=== PATIENT | female | born 1975 | race Caucasian/White ===

== ENCOUNTER → 2016-03-20 | Outpatient (CLI) | payer OTHER ==
--- NOTE | 2016-03-20 09:23 | US ---
Pelvic Ultrasound (Transabdominal and Endovaginal) with color flow and spectral Doppler History: Menorrhagia. Possible enlarged uterus.. Findings: The pelvis was first examined through a mildly distended bladder from TRANSABDOMINAL approach. UTERUS: Size: 9.9 x 4.2 x 5.3 cm in longitudinal, AP, and transverse projections. Orientation: Anteverted and slightly retroflexed. Uterine Masses: None seen. Endometrium: Not well delineated. ADNEXA: No adnexal masses. The pelvis was then evaluated from ENDOVAGINAL approach after the bladder was emptied to better evalu ate the uterus and adnexa. UTERUS: Orientation: Anteverted and slightly retroflexed. Masses: There is a subtle submucosal fibroid suspected along the anterior aspect of the endometrial s tripe measuring 2 x 1.2 x 2 cm. Endometrium: Mildly thickened measuring 14 mm in thickness. ADNEXA: There are 2 adjacent follicular cysts associated with the right ovary with small follicles as sociated with the left ovary. Right ovary size: 1.7 x 2.4 x 3.2 cm Left ovary size: 2.7 x 2.8 x 1 cm Color flow and spectral Doppler: Normal color flow imaging with normal Doppler waveform bilaterally. Free fluid: None. Other findings: None. Impression: 1. Subtle submucosal fibroid suspected along the anterior aspect of the endometrial stripe. 2. Mild thickening of the endometrial stripe measuring about 14 mm. 3. Incidental follicular cysts right ovary.
== END ==
LOC: FIMAGING 08:19
PROVIDERS: ATTEND Nurse Practitioner
DX: D25.0 Submucous leiomyoma of uterus (principal); N83.01 Follicular cyst of right ovary